=== PATIENT | female | born 1975 | race Caucasian/White ===

== ENCOUNTER 2016-05-03 20:35 | Emergency (ER) | payer OTHER ==
[~2016-05-03 20:35] MED LIST: /AUGM875TA; /PANT40TA; CLIN300C; DECADRON; MEDROL PACK; No Historical Meds; VICO5TAB; [UNRECOGNIZED DRUG - OTHER]
[2016-05-03] MEDS ORDERED: PENICILLIN V POTASSIUM 250 MG TAB As Ordered ONE (22:24)
[2016-05-03] MEDS ORDERED: PERCOCET 5MG/325MG TAB As Ordered ONE (22:24)
--- NOTE | 2016-05-03 22:36 | EDDOCDS ---
Physician Documentation [facility] Name: Eden Alvarado Age: 40 yrs Sex: Female : 1975 Arrival Date: 05/03/2016 Time: 20:35 Bed 12 Private MD: No Pcp Disposition: 05/03/16 22:10 Discharged to Home/Self Care. Impression: Dental caries - with tooth infection. - Condition is Stable. - Discharge Instructions: Dental Pain. - Prescriptions for Percocet 5- 325 mg Oral Tablet - take 1 tablet by ORAL route every 6 hours As needed MDD: 4 tabs; 20 tablet. penicillin V potassium 500 mg Oral Tablet - take 1 tablet by ORAL route 4 times per day for 10 days; 40 tablet. - Medication Reconciliation, Local Pharmacy Hours form. - Follow up: Private Physician; When: 2 - 3 days. - Problem is new. - Symptoms have improved. - Notes: follow up with dentist. return if worsening symptoms Historical: - Allergies: Tylenol-Codeine #3 (Hives); - Home Meds: 1. Albuterol Inhl - PMHx: Asthma; Heart Murmur; - PSHx: Tubal ligation; right knee surgery; Tonsillectomy; D & C; - Social history: Smoking status: Patient uses tobacco products, light tobacco smoker. No barriers to communication noted, The patient speaks fluent Turkmen, Speaks appropriately for age. - Family history: Not pertinent. - : The pt / caregiver states he / she is not on anticoagulants. Home medication list is obtained from the patient. - Exposure Risk Screening:: None identified. 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 4 in. (162.56 cm) (R); Pain 6/10; 22:14 BP 147 / 60; Pulse 71; Resp 18 S; Temp 97.6(O); Pulse Ox 95% on R/A; Pain 10/10; jp4 20:37 Body Mass Index 26.61 (70.31 kg, 162.56 cm) gr2 MDM: 22:22 oxyCODONE-acetaminophen 5 mg-325 mg 1 tabs PO once ordered. ml 22:22 Penicillin VK 500 mg PO once ordered. ml Administered Medications: 22:31 Drug: oxyCODONE-acetaminophen 1 tabs [oxycodone-acetaminophen 5 mg-325 mg tablet (1 mgs tabs)] Route: PO; 22:31 Drug: Penicillin VK 500 mg [penicillin V potassium 250 mg tablet (2 tabs)] Route: PO; mgs Signatures: Addie Vergara MD MD ml Tom Saleh, LEENA RN cz Tk Gomez RN RN mgs MTDD
--- NOTE | 2016-05-03 22:36 | EDDOCDS ---
Nurse's Notes [facility] Name: Eden Alvarado Age: 40 yrs Sex: Female : 1975 Arrival Date: 05/03/2016 Time: 20:35 Bed 12 Private MD: No Pcp Diagnosis: Dental caries-with tooth infection Presentation: 05/03 20:42 Presenting complaint: Patient states: left upper dental abscess for a couple of days. cz Adult Sepsis Screening: The patient does not have new or worsening altered mentation. Patient's respiratory rate is less than 22. Systolic blood pressure is greater than 100. Patient has a qSOFA score of 0- Negative Sepsis Screen. Suicide/Homicide risk assessment- the patient denies having any suicidal and/or homicidal ideations and does not present with any other emotional, behavioral or mental health complaints. 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 Transition of care: patient was not received from another setting of care. 20:42 Acuity: NERY Level 5 cz 20:42 Method Of Arrival: Walkin/Carried/Asstd cz Triage Assessment: 20:45 General: Appears in no apparent distress. Pain: Location: left cheek and left jaw Pain cz currently is 8 out of 10 on a pain scale. HIV screening NA for this visit Offered previously. 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 Albuterol Inhl - PMHx: Asthma; Heart Murmur; - PSHx: Tubal ligation; right knee surgery; Tonsillectomy; D & C; - Social history: Smoking status: Patient uses tobacco products, light tobacco smoker. No barriers to communication noted, The patient speaks fluent Gibraltarian, Speaks appropriately for age. - Family history: Not pertinent. - : The pt / caregiver states he / she is not on anticoagulants. Home medication list is obtained from the patient. - Exposure Risk Screening:: None identified. Screenin:07 Screening information is obtained from the patient. Fall risk: No risks identified. mgs Assistance ADL's: requires no assistance with activities of daily living. Abuse/DV Screen: The patient / caregiver reports he/she is: not in a situation that causes fear, pain or injury. Nutritional screening: No deficits noted. Advance Directives: Currently, there is no health care proxy. There is no active DNR order. home support is adequate. Assessment: 22:06 Adult Sepsis Screening: The patient does not have new or worsening altered mentation. mgs Patient's respiratory rate is less than 22. Systolic blood pressure is greater than 100. General: Appears in no apparent distress, Behavior is appropriate for age, cooperative. Pain: Location: left jaw Pain currently is 10 out of 10 on a pain scale. Quality of pain is described as throbbing. Neurological: Level of Consciousness is awake, alert, Oriented to person, place, time. Cardiovascular: Capillary refill < 3 seconds. Respiratory: Airway is patent Respiratory effort is even, unlabored, Respiratory pattern is regular, symmetrical. Derm: Skin is pink, warm & dry. 22:32 General: Appears in no apparent distress, Behavior is appropriate for age, cooperative. mgs Pain: Location: left jaw Pain currently is 10 out of 10 on a pain scale. Quality of pain is described as throbbing. Neurological: Level of Consciousness is awake, alert, Oriented to person, place, time. Cardiovascular: Capillary refill < 3 seconds. Respiratory: Airway is patent Respiratory effort is even, unlabored, Respiratory pattern is regular, symmetrical. Derm: Skin is pink, warm & dry. Vital Signs: 20:37 BP 128 / 78; Pulse 80; Resp 18 S; Temp 97.2(O); Pulse Ox 98% on R/A; Weight 70.31 kg gr2 (R); Height 5 ft. 4 in. (162.56 cm) (R); Pain 6/10; 22:14 BP 147 / 60; Pulse 71; Resp 18 S; Temp 97.6(O); Pulse Ox 95% on R/A; Pain 10/10; jp4 20:37 Body Mass Index 26.61 (70.31 kg, 162.56 cm) gr2 Vitals: 20:37 Log In Time: May 03, 2016 at 20:37. gr2 ED Course: 20:36 Patient visited by So José. gr2 20:36 Patient moved to Waiting gr2 20:37 No Pcp is Private Physician. gr2 20:38 Patient visited by So José. gr2 20:38 Patient moved to Pre RCE gr2 20:44 Triage Initiated cz 21:52 Paulina Small,RN is Primary Nurse. ar3 21:52 Patient moved to 12 ar3 21:56 Addie Vergara MD is Attending Physician. ml 21:56 Patient visited by Addie Vergara MD. ml 22:08 Patient visited by Tk Gomez,LEENA. mgs 22:15 Patient visited by Augustus Rob. jp4 22:33 The patient / caregiver is instructed regarding the plan of care and ED course. mgs 22:33 No IV's were initiated during this patient's visit. No procedures done that require mgs assistance. Administered Medications: 22:31 Drug: oxyCODONE-acetaminophen 1 tabs [oxycodone-acetaminophen 5 mg-325 mg tablet (1 mgs tabs)] Route: PO; 22:31 Drug: Penicillin VK 500 mg [penicillin V potassium 250 mg tablet (2 tabs)] Route: PO; mgs Order Results: There are currently no results for this order. Outcome: 22:10 Discharge ordered by Provider. 22:33 Discharge Assessment: Patient awake, alert and oriented x 3. No cognitive and/or mgs functional deficits noted. Patient verbalized understanding of disposition instructions. patient administered narcotics - yes. Pt provided with safe discharge. The following High Risk Discharge criteria are identified: None. Discharged to home ambulatory, with friend. Condition: stable. No special radiology studies were completed. Property sent home with patient. 22:34 Discharge instructions given to patient, Instructed on discharge instructions, follow mgs up and referral plans. medication usage, Demonstrated understanding of instructions, medications, Pt was receptive of discharge instructions/ teaching. Prescriptions given X 2. 22:34 Patient left the ED. mgs Signatures: Addie Vergara MD MD ml Zecher, Calvin, LEENA RN cz Barbara Brown, DIRECTORY CLERK DIRECTORY CLERK ar3 So José gr2 Augustus Rob jp4 Tk Gomez,LEENA RN mgs MTDD
--- NOTE | 2016-05-05 23:35 | EDDOCDS ---
Physician Documentation [facility] Name: Eden Alvarado Age: 40 yrs Sex: Female : 1975 Arrival Date: 05/03/2016 Time: 20:35 Bed 12 Private MD: No Pcp Disposition: 05/03/16 22:10 Discharged to Home/Self Care. Impression: Dental caries - with tooth infection. - Condition is Stable. - Discharge Instructions: Dental Pain. - Prescriptions for Percocet 5- 325 mg Oral Tablet - take 1 tablet by ORAL route every 6 hours As needed MDD: 4 tabs; 20 tablet. penicillin V potassium 500 mg Oral Tablet - take 1 tablet by ORAL route 4 times per day for 10 days; 40 tablet. - Medication Reconciliation, Local Pharmacy Hours form. - Follow up: Private Physician; When: 2 - 3 days. - Problem is new. - Symptoms have improved. - Notes: follow up with dentist. return if worsening symptoms Historical: - Allergies: Tylenol-Codeine #3 (Hives); - Home Meds: 1. Albuterol Inhl - PMHx: Asthma; Heart Murmur; - PSHx: Tubal ligation; right knee surgery; Tonsillectomy; D & C; - Social history: Smoking status: Patient uses tobacco products, light tobacco smoker. No barriers to communication noted, The patient speaks fluent Slovak, Speaks appropriately for age. - Family history: Not pertinent. - : The pt / caregiver states he / she is not on anticoagulants. Home medication list is obtained from the patient. - Exposure Risk Screening:: None identified. 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 4 in. (162.56 cm) (R); Pain 6/10; 22:14 BP 147 / 60; Pulse 71; Resp 18 S; Temp 97.6(O); Pulse Ox 95% on R/A; Pain 10/10; jp4 20:37 Body Mass Index 26.61 (70.31 kg, 162.56 cm) gr2 MDM: 22:22 oxyCODONE-acetaminophen 5 mg-325 mg 1 tabs PO once ordered. ml 22:22 Penicillin VK 500 mg PO once ordered. ml 23:22 [facility] Payment Agreement was scanned into [employer] and attached to record. gjb :23 Financial registration complete. gjb 05/04 10:18 T-Sheet-- Draft Copy was scanned into [employer] and attached to record. gb Administered Medications: 05/03 22:31 Drug: oxyCODONE-acetaminophen 1 tabs [oxycodone-acetaminophen 5 mg-325 mg tablet (1 mgs tabs)] Route: PO; 22:31 Drug: Penicillin VK 500 mg [penicillin V potassium 250 mg tablet (2 tabs)] Route: PO; mgs Signatures: Addie Vergara MD MD ml Zecher, Calvin, RN RN Andreina Stapleton, Tk Lorenzo RN RN mgs Beck, Gabriela gjb The chart was reviewed and I authenticate all verbal orders and agree with the evaluation and treatment provided.Attachments: 23:22 [facility] Payment Agreement [facility] 05/04 10:18 T-Sheet-- Draft Copy gb Chart Complete MTDD
--- NOTE | 2016-05-05 23:35 | EDDOCDS ---
Physician Documentation [facility] Name: Eden Alvarado Age: 40 yrs Sex: Female : 1975 Arrival Date: 05/03/2016 Time: 20:35 Bed 12 Private MD: No Pcp Disposition: 05/03/16 22:10 Discharged to Home/Self Care. Impression: Dental caries - with tooth infection. - Condition is Stable. - Discharge Instructions: Dental Pain. - Prescriptions for Percocet 5- 325 mg Oral Tablet - take 1 tablet by ORAL route every 6 hours As needed MDD: 4 tabs; 20 tablet. penicillin V potassium 500 mg Oral Tablet - take 1 tablet by ORAL route 4 times per day for 10 days; 40 tablet. - Medication Reconciliation, Local Pharmacy Hours form. - Follow up: Private Physician; When: 2 - 3 days. - Problem is new. - Symptoms have improved. - Notes: follow up with dentist. return if worsening symptoms Historical: - Allergies: Tylenol-Codeine #3 (Hives); - Home Meds: 1. Albuterol Inhl - PMHx: Asthma; Heart Murmur; - PSHx: Tubal ligation; right knee surgery; Tonsillectomy; D & C; - Social history: Smoking status: Patient uses tobacco products, light tobacco smoker. No barriers to communication noted, The patient speaks fluent Persian, Speaks appropriately for age. - Family history: Not pertinent. - : The pt / caregiver states he / she is not on anticoagulants. Home medication list is obtained from the patient. - Exposure Risk Screening:: None identified. 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 4 in. (162.56 cm) (R); Pain 6/10; 22:14 BP 147 / 60; Pulse 71; Resp 18 S; Temp 97.6(O); Pulse Ox 95% on R/A; Pain 10/10; jp4 20:37 Body Mass Index 26.61 (70.31 kg, 162.56 cm) gr2 MDM: 22:22 oxyCODONE-acetaminophen 5 mg-325 mg 1 tabs PO once ordered. ml 22:22 Penicillin VK 500 mg PO once ordered. ml 23:22 [facility] Payment Agreement was scanned into [employer] and attached to record. gjb :23 Financial registration complete. gjb 05/04 10:18 T-Sheet-- Draft Copy was scanned into [employer] and attached to record. gb Administered Medications: 05/03 22:31 Drug: oxyCODONE-acetaminophen 1 tabs [oxycodone-acetaminophen 5 mg-325 mg tablet (1 mgs tabs)] Route: PO; 22:31 Drug: Penicillin VK 500 mg [penicillin V potassium 250 mg tablet (2 tabs)] Route: PO; mgs Signatures: Addie Vergara MD MD ml Zecher, Calvin, RN RN Andreina Stapleton, Tk Lorenzo RN RN mgs Beck, Gabriela gjb The chart was reviewed and I authenticate all verbal orders and agree with the evaluation and treatment provided.Attachments: 23:22 [facility] Payment Agreement [facility] 05/04 10:18 T-Sheet-- Draft Copy gb Chart Complete MTDD
--- NOTE | 2016-05-05 23:35 | EDDOCDS ---
Nurse's Notes [facility] Name: Eden Alvarado Age: 40 yrs Sex: Female : 1975 Arrival Date: 05/03/2016 Time: 20:35 Bed 12 Private MD: No Pcp Diagnosis: Dental caries-with tooth infection Presentation: 05/03 20:42 Presenting complaint: Patient states: left upper dental abscess for a couple of days. cz Adult Sepsis Screening: The patient does not have new or worsening altered mentation. Patient's respiratory rate is less than 22. Systolic blood pressure is greater than 100. Patient has a qSOFA score of 0- Negative Sepsis Screen. Suicide/Homicide risk assessment- the patient denies having any suicidal and/or homicidal ideations and does not present with any other emotional, behavioral or mental health complaints. 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 Transition of care: patient was not received from another setting of care. 20:42 Acuity: NERY Level 5 cz 20:42 Method Of Arrival: Walkin/Carried/Asstd cz Triage Assessment: 20:45 General: Appears in no apparent distress. Pain: Location: left cheek and left jaw Pain cz currently is 8 out of 10 on a pain scale. HIV screening NA for this visit Offered previously. 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 Albuterol Inhl - PMHx: Asthma; Heart Murmur; - PSHx: Tubal ligation; right knee surgery; Tonsillectomy; D & C; - Social history: Smoking status: Patient uses tobacco products, light tobacco smoker. No barriers to communication noted, The patient speaks fluent Serbian, Speaks appropriately for age. - Family history: Not pertinent. - : The pt / caregiver states he / she is not on anticoagulants. Home medication list is obtained from the patient. - Exposure Risk Screening:: None identified. Screenin:07 Screening information is obtained from the patient. Fall risk: No risks identified. mgs Assistance ADL's: requires no assistance with activities of daily living. Abuse/DV Screen: The patient / caregiver reports he/she is: not in a situation that causes fear, pain or injury. Nutritional screening: No deficits noted. Advance Directives: Currently, there is no health care proxy. There is no active DNR order. home support is adequate. Assessment: 22:06 Adult Sepsis Screening: The patient does not have new or worsening altered mentation. mgs Patient's respiratory rate is less than 22. Systolic blood pressure is greater than 100. General: Appears in no apparent distress, Behavior is appropriate for age, cooperative. Pain: Location: left jaw Pain currently is 10 out of 10 on a pain scale. Quality of pain is described as throbbing. Neurological: Level of Consciousness is awake, alert, Oriented to person, place, time. Cardiovascular: Capillary refill < 3 seconds. Respiratory: Airway is patent Respiratory effort is even, unlabored, Respiratory pattern is regular, symmetrical. Derm: Skin is pink, warm & dry. 22:32 General: Appears in no apparent distress, Behavior is appropriate for age, cooperative. mgs Pain: Location: left jaw Pain currently is 10 out of 10 on a pain scale. Quality of pain is described as throbbing. Neurological: Level of Consciousness is awake, alert, Oriented to person, place, time. Cardiovascular: Capillary refill < 3 seconds. Respiratory: Airway is patent Respiratory effort is even, unlabored, Respiratory pattern is regular, symmetrical. Derm: Skin is pink, warm & dry. Vital Signs: 20:37 BP 128 / 78; Pulse 80; Resp 18 S; Temp 97.2(O); Pulse Ox 98% on R/A; Weight 70.31 kg gr2 (R); Height 5 ft. 4 in. (162.56 cm) (R); Pain 6/10; 22:14 BP 147 / 60; Pulse 71; Resp 18 S; Temp 97.6(O); Pulse Ox 95% on R/A; Pain 10/10; jp4 20:37 Body Mass Index 26.61 (70.31 kg, 162.56 cm) gr2 Vitals: 20:37 Log In Time: May 03, 2016 at 20:37. gr2 ED Course: 20:36 Patient visited by So José. gr2 20:36 Patient moved to Waiting gr2 20:37 No Pcp is Private Physician. gr2 20:38 Patient visited by So José. gr2 20:38 Patient moved to Pre RCE gr2 20:44 Triage Initiated cz 21:52 Paulina Small,RN is Primary Nurse. ar3 21:52 Patient moved to 12 ar3 21:56 Addie Vergara MD is Attending Physician. ml 21:56 Patient visited by Addie Vergara MD. ml 22:08 Patient visited by Tk Gomez,LEENA. mgs 22:15 Patient visited by Augustus Rob. jp4 22:33 The patient / caregiver is instructed regarding the plan of care and ED course. mgs 22:33 No IV's were initiated during this patient's visit. No procedures done that require mgs assistance. 23:22 [facility] Payment Agreement was scanned into [employer] and attached to record. gjb 05/04 10:18 T-Sheet-- Draft Copy was scanned into [employer] and attached to record. gb Administered Medications: 05/03 22:31 Drug: oxyCODONE-acetaminophen 1 tabs [oxycodone-acetaminophen 5 mg-325 mg tablet (1 mgs tabs)] Route: PO; 22:31 Drug: Penicillin VK 500 mg [penicillin V potassium 250 mg tablet (2 tabs)] Route: PO; mgs Order Results: There are currently no results for this order. Outcome: 22:10 Discharge ordered by Provider. ml 22:33 Discharge Assessment: Patient awake, alert and oriented x 3. No cognitive and/or mgs functional deficits noted. Patient verbalized understanding of disposition instructions. patient administered narcotics - yes. Pt provided with safe discharge. The following High Risk Discharge criteria are identified: None. Discharged to home ambulatory, with friend. Condition: stable. No special radiology studies were completed. Property sent home with patient. 22:34 Discharge instructions given to patient, Instructed on discharge instructions, follow mgs up and referral plans. medication usage, Demonstrated understanding of instructions, medications, Pt was receptive of discharge instructions/ teaching. Prescriptions given X 2. 22:34 Patient left the ED. mgs Signatures: Addie Vergara MD MD ml Zecher, Calvin, LEENA RN cz Andreina Douglass, Reg Reg gb Kurtis Browna, PIN DRAFTING MACHINE TENDER PIN DRAFTING MACHINE TENDER ar3 So José gr2 Augustus Rob jp4 Tk Gomez,LEENA STERN s [facility] Chart Complete MTDD
== END 2016-05-03 22:34 | disposition home or self-care (01) ==
LOC: M ED 20:35
DX: K08.9 Disorder of teeth and supporting structures, unspecified (principal); J45.909 Unspecified asthma, uncomplicated; R01.1 Cardiac murmur, unspecified; F17.210 Nicotine dependence, cigarettes, uncomplicated; Z79.51 Long term (current) use of inhaled steroids; Z88.6 Allergy status to analgesic agent

== ENCOUNTER 2016-05-29 14:09 | Emergency (ER) | payer OTHER ==
--- NOTE | 2016-05-29 15:38 | EDDOCDS ---
Physician Documentation [facility] Name: Eden Alvarado Age: 40 yrs Sex: Female : 1975 Arrival Date: 05/29/2016 Time: 14:09 Bed TR7 Private MD: No Pcp Disposition: 05/29/16 15:27 Discharged to Home/Self Care. Impression: Dental caries - Tooth Pain/Fracture/Abscess. - Condition is Stable. - Discharge Instructions: Dental Fracture, Abscessed Tooth, [id number], Dental Pain, [id number], Dental Pain. - Prescriptions for Clindamycin HCl 300 mg Oral Capsule - take 1 capsule by ORAL route every 6 hours; 40 capsule. Ibuprofen 800 mg Oral Tablet - take 1 tablet by ORAL route every 8 hours As needed take with food; 30 tablet. Percocet 5- 325 mg Oral Tablet - take 1 tablet by ORAL route every 6 hours As needed MDD: 4 tabs; 6 tablet. magic mouthwash Mucous Membrane Solution - apply 5 milliliters by ORAL route 4 times per day As needed Gargle, swish, spit; Maalox, Liquid Benadryl, and Viscous Lidocaine, 1 to 1 to 1 ratio; 237 milliliter. - Dental Referral List, Referral List Call for Appointment, Medication Reconciliation, Local Pharmacy Hours form. - Follow up: Dentist Your; When: 1 - 2 days; Reason: Further diagnostic work-up, Recheck today's complaints, Continuance of care. Follow up: Emergency Department; Reason: Worsening of conditions. - Problem is new. - Symptoms are unchanged. Historical: - Allergies: Tylenol-Codeine #3 (Hives); - Home Meds: 1. albuterol sulfate 90 mcg/actuation inhalation HFAA prn 2. ibuprofen 800 mg Oral tab prn (Last dose: 05/29/2016 13:15) - PMHx: Asthma; Heart Murmur; - PSHx: Tubal ligation; right knee surgery; Tonsillectomy; D & C; - Social history: Smoking status: Patient uses tobacco products, current every day smoker. No barriers to communication noted, The patient speaks fluent Citizen Of [place]. - : The pt / caregiver states he / she is not on anticoagulants. Home medication list is obtained from the patient. - Exposure Risk Screening:: None identified. 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 4 in. (162.56 cm) (R); 14:10 Body Mass Index 26.61 (70.31 kg, 162.56 cm) elp Signatures: Debbie Joés, LEENA RN Charleen Guzmán, PAPranavC PA-C ef1 MTDD
--- NOTE | 2016-05-29 15:38 | EDDOCDS ---
Nurse's Notes [facility] Name: Eden Alvarado Age: 40 yrs Sex: Female : 1975 Arrival Date: 05/29/2016 Time: 14:09 Bed TR7 Private MD: No Pcp Diagnosis: Dental caries-Tooth Pain/Fracture/Abscess Presentation: 05/29 14:13 Presenting complaint: Patient states: left jaw pain for past 2 days now radiating to jjr left ear. Adult Sepsis Screening: The patient does not have new or worsening altered mentation. Patient's respiratory rate is less than 22. Systolic blood pressure is greater than 100. Patient has a qSOFA score of 0- Negative Sepsis Screen. Suicide/Homicide risk assessment- the patient denies having any suicidal and/or homicidal ideations and does not present with any other emotional, behavioral or mental health complaints. Status: Patient is not a service porter or dependent. Transition of care: patient was not received from another setting of care. 14:13 Acuity: NERY Level 4 jjr 14:13 Method Of Arrival: Walkin/Carried/Asstd jjr Triage Assessment: 14:15 General: Appears in no apparent distress, uncomfortable, Behavior is appropriate for jr age. Pain: Location: left jaw. HIV screening NA for this visit Offered previously. OPENER: 14:15 LMP 05/22/2016 jjr Historical: - Allergies: Tylenol-Codeine #3 (Hives); - Home Meds: 1. albuterol sulfate 90 mcg/actuation inhalation HFAA prn 2. ibuprofen 800 mg Oral tab prn (Last dose: 05/29/2016 13:15) - PMHx: Asthma; Heart Murmur; - PSHx: Tubal ligation; right knee surgery; Tonsillectomy; D & C; - Social history: Smoking status: Patient uses tobacco products, current every day smoker. No barriers to communication noted, The patient speaks fluent Kiswahili. - : The pt / caregiver states he / she is not on anticoagulants. Home medication list is obtained from the patient. - Exposure Risk Screening:: None identified. Screenin:11 Infection Control. el 15:36 Screening information is obtained from the patient. Fall risk: No risks identified. jjr Assistance ADL's: requires no assistance with activities of daily living. Abuse/DV Screen: The patient / caregiver reports he/she is: not in a situation that causes fear, pain or injury. Nutritional screening: No deficits noted. Advance Directives: There is no active DNR order. home support is adequate. Assessment: 15:35 General: Appears in no apparent distress, well nourished, well groomed, Behavior is jjr appropriate for age. EENT: Reports pain in left jaw. Respiratory: Airway is patent Respiratory effort is even, unlabored, Respiratory pattern is regular. Vital Signs: 14:10 BP 153 / 86; Pulse 81; Resp 16; Temp 96.9(O); Pulse Ox 97% on R/A; Weight 70.31 kg (R); elp Height 5 ft. 4 in. (162.56 cm) (R); 14:10 Body Mass Index 26.61 (70.31 kg, 162.56 cm) el Vitals: 14:10 Log In Time: May 29, 2016 at 14:08. [facility] ED Course: 14:09 Patient visited by Paradise Wilkerson PCA. elp 14:09 Patient moved to Waiting elp 14:10 No Pcp is Private Physician. elp 14:10 Patient moved to Pre RCE jjr 14:14 Triage Initiated jjr 15:09 Patient moved to Triage 2 ar3 15:10 [facility] Palumbo [facility] ef1 15:10 Daylin Cardoso MD is Attending Physician. ef1 15:12 Patient visited by Charleen Palumbo PA-C. ef1 15:27 Your, Dentist is Referral Physician. ef1 15:35 Patient moved to TR7 ar3 15:36 The patient / caregiver is instructed regarding the plan of care and ED course. jjr 15:36 No IV's were initiated during this patient's visit. No procedures done that require jjr assistance. Order Results: There are currently no results for this order. Outcome: 15:27 Discharge ordered by Provider. ef1 15:36 Discharge Assessment: patient administered narcotics - no. The following High Risk jjr Discharge criteria are identified: None. Discharged to home ambulatory, with family. Condition: stable. Discharge instructions given to patient, Instructed on discharge instructions, follow up and referral plans. medication usage, Demonstrated understanding of instructions, medications, Prescriptions given X 4. No special radiology studies were completed. Property sent home with patient. 15:37 Patient left the ED. [email or web address] Signatures: Debbie José, RN RN Charleen Guzmán PA-C PA-C ef1 Barbara Brown, MENTALLY RETARDED TEACHER MENTALLY RETARDED TEACHER ar3 Paradise Wilkerson, MENTALLY RETARDED TEACHER MENTALLY RETARDED TEACHER elp MTDD
--- NOTE | 2016-05-31 16:37 | EDDOCDS ---
Physician Documentation [facility] Name: Eden Alvarado Age: 40 yrs Sex: Female : 1975 Arrival Date: 05/29/2016 Time: 14:09 Bed TR7 Private MD: No Pcp Disposition: 05/29/16 15:27 Discharged to Home/Self Care. Impression: Dental caries - Tooth Pain/Fracture/Abscess. - Condition is Stable. - Discharge Instructions: Dental Fracture, Abscessed Tooth, [id number], Dental Pain, [id number], Dental Pain. - Prescriptions for Clindamycin HCl 300 mg Oral Capsule - take 1 capsule by ORAL route every 6 hours; 40 capsule. Ibuprofen 800 mg Oral Tablet - take 1 tablet by ORAL route every 8 hours As needed take with food; 30 tablet. Percocet 5- 325 mg Oral Tablet - take 1 tablet by ORAL route every 6 hours As needed MDD: 4 tabs; 6 tablet. magic mouthwash Mucous Membrane Solution - apply 5 milliliters by ORAL route 4 times per day As needed Gargle, swish, spit; Maalox, Liquid Benadryl, and Viscous Lidocaine, 1 to 1 to 1 ratio; 237 milliliter. - Dental Referral List, Referral List Call for Appointment, Medication Reconciliation, Local Pharmacy Hours form. - Follow up: Dentist Your; When: 1 - 2 days; Reason: Further diagnostic work-up, Recheck today's complaints, Continuance of care. Follow up: Emergency Department; Reason: Worsening of conditions. - Problem is new. - Symptoms are unchanged. Historical: - Allergies: Tylenol-Codeine #3 (Hives); - Home Meds: 1. albuterol sulfate 90 mcg/actuation inhalation HFAA prn 2. ibuprofen 800 mg Oral tab prn (Last dose: 05/29/2016 13:15) - PMHx: Asthma; Heart Murmur; - PSHx: Tubal ligation; right knee surgery; Tonsillectomy; D & C; - Social history: Smoking status: Patient uses tobacco products, current every day smoker. No barriers to communication noted, The patient speaks fluent Nigerian. - : The pt / caregiver states he / she is not on anticoagulants. Home medication list is obtained from the patient. - Exposure Risk Screening:: None identified. INDUSTRIAL ENG: 05/29 14:15 LMP 05/22/2016 cisco Vital Signs: 14:10 BP 153 / 86; Pulse 81; Resp 16; Temp 96.9(O); Pulse Ox 97% on R/A; Weight 70.31 kg / elp 155.01 lbs (R); Height 5 ft. 4 in. (162.56 cm) (R); 14:10 Body Mass Index 26.61 (70.31 kg, 162.56 cm) elp MDM: 20:03 T-Sheet-- Draft Copy was scanned into [employer] and attached to record. klr Signatures: Debbie José, RN RN Charleen Guzmán PA-C PA-C ef1 Coleen Ward The chart was reviewed and I authenticate all verbal orders and agree with the evaluation and treatment provided.Attachments: 20:03 T-Sheet-- Draft Copy klr Chart Complete MTDD
--- NOTE | 2016-05-31 16:37 | EDDOCDS ---
Physician Documentation [facility] Name: Eden Alvarado Age: 40 yrs Sex: Female : 1975 Arrival Date: 05/29/2016 Time: 14:09 Bed TR7 Private MD: No Pcp Disposition: 05/29/16 15:27 Discharged to Home/Self Care. Impression: Dental caries - Tooth Pain/Fracture/Abscess. - Condition is Stable. - Discharge Instructions: Dental Fracture, Abscessed Tooth, [id number], Dental Pain, [id number]-[id number], Dental Pain. - Prescriptions for Clindamycin HCl 300 mg Oral Capsule - take 1 capsule by ORAL route every 6 hours; 40 capsule. Ibuprofen 800 mg Oral Tablet - take 1 tablet by ORAL route every 8 hours As needed take with food; 30 tablet. Percocet 5- 325 mg Oral Tablet - take 1 tablet by ORAL route every 6 hours As needed MDD: 4 tabs; 6 tablet. magic mouthwash Mucous Membrane Solution - apply 5 milliliters by ORAL route 4 times per day As needed Gargle, swish, spit; Maalox, Liquid Benadryl, and Viscous Lidocaine, 1 to 1 to 1 ratio; 237 milliliter. - Dental Referral List, Referral List Call for Appointment, Medication Reconciliation, Local Pharmacy Hours form. - Follow up: Dentist Your; When: 1 - 2 days; Reason: Further diagnostic work-up, Recheck today's complaints, Continuance of care. Follow up: Emergency Department; Reason: Worsening of conditions. - Problem is new. - Symptoms are unchanged. Historical: - Allergies: Tylenol-Codeine #3 (Hives); - Home Meds: 1. albuterol sulfate 90 mcg/actuation inhalation HFAA prn 2. ibuprofen 800 mg Oral tab prn (Last dose: 05/29/2016 13:15) - PMHx: Asthma; Heart Murmur; - PSHx: Tubal ligation; right knee surgery; Tonsillectomy; D & C; - Social history: Smoking status: Patient uses tobacco products, current every day smoker. No barriers to communication noted, The patient speaks fluent Bolivian. - : The pt / caregiver states he / she is not on anticoagulants. Home medication list is obtained from the patient. - Exposure Risk Screening:: None identified. HEARING EXAMINER: 05/29 14:15 LMP 05/22/2016 cisco Vital Signs: 14:10 BP 153 / 86; Pulse 81; Resp 16; Temp 96.9(O); Pulse Ox 97% on R/A; Weight 70.31 kg / elp 155.01 lbs (R); Height 5 ft. 4 in. (162.56 cm) (R); 14:10 Body Mass Index 26.61 (70.31 kg, 162.56 cm) elp MDM: 20:03 T-Sheet-- Draft Copy was scanned into LEHR and attached to record. klr Signatures: Debbie José, RN RN Charleen Guzmán PA-C PA-C ef1 Coleen Ward The chart was reviewed and I authenticate all verbal orders and agree with the evaluation and treatment provided.Attachments: 20:03 T-Sheet-- Draft Copy klr Chart Complete MTDD
--- NOTE | 2016-05-31 16:37 | EDDOCDS ---
Nurse's Notes [facility] Name: Eden Alvarado Age: 40 yrs Sex: Female : 1975 Arrival Date: 05/29/2016 Time: 14:09 Bed TR7 Private MD: No Pcp Diagnosis: Dental caries-Tooth Pain/Fracture/Abscess Presentation: 05/29 14:13 Presenting complaint: Patient states: left jaw pain for past 2 days now radiating to jjr left ear. Adult Sepsis Screening: The patient does not have new or worsening altered mentation. Patient's respiratory rate is less than 22. Systolic blood pressure is greater than 100. Patient has a qSOFA score of 0- Negative Sepsis Screen. Suicide/Homicide risk assessment- the patient denies having any suicidal and/or homicidal ideations and does not present with any other emotional, behavioral or mental health complaints. Status: Patient is not a service greeter or dependent. Transition of care: patient was not received from another setting of care. 14:13 Acuity: NERY Level 4 jjr 14:13 Method Of Arrival: Walkin/Carried/Asstd jjr Triage Assessment: 14:15 General: Appears in no apparent distress, uncomfortable, Behavior is appropriate for jr age. Pain: Location: left jaw. HIV screening NA for this visit Offered previously. CRUSHER [employer] GR[employer] MICA: 14:15 LMP 05/22/2016 jjr Historical: - Allergies: Tylenol-Codeine #3 (Hives); - Home Meds: 1. albuterol sulfate 90 mcg/actuation inhalation HFAA prn 2. ibuprofen 800 mg Oral tab prn (Last dose: 05/29/2016 13:15) - PMHx: Asthma; Heart Murmur; - PSHx: Tubal ligation; right knee surgery; Tonsillectomy; D & C; - Social history: Smoking status: Patient uses tobacco products, current every day smoker. No barriers to communication noted, The patient speaks fluent Romansh. - : The pt / caregiver states he / she is not on anticoagulants. Home medication list is obtained from the patient. - Exposure Risk Screening:: None identified. Screenin:11 Infection Control. el 15:36 Screening information is obtained from the patient. Fall risk: No risks identified. jjr Assistance ADL's: requires no assistance with activities of daily living. Abuse/DV Screen: The patient / caregiver reports he/she is: not in a situation that causes fear, pain or injury. Nutritional screening: No deficits noted. Advance Directives: There is no active DNR order. home support is adequate. Assessment: 15:35 General: Appears in no apparent distress, well nourished, well groomed, Behavior is jjr appropriate for age. EENT: Reports pain in left jaw. Respiratory: Airway is patent Respiratory effort is even, unlabored, Respiratory pattern is regular. Vital Signs: 14:10 BP 153 / 86; Pulse 81; Resp 16; Temp 96.9(O); Pulse Ox 97% on R/A; Weight 70.31 kg (R); elp Height 5 ft. 4 in. (162.56 cm) (R); 14:10 Body Mass Index 26.61 (70.31 kg, 162.56 cm) el Vitals: 14:10 Log In Time: May 29, 2016 at 14:08. [facility] ED Course: 14:09 Patient visited by Paradise Wilkerson PCA. elp 14:09 Patient moved to Waiting elp 14:10 No Pcp is Private Physician. elp 14:10 Patient moved to Pre RCE jjr 14:14 Triage Initiated jjr 15:09 Patient moved to Triage 2 ar3 15:10 Char[facility] Palumbo [facility]-C [facility]. ef1 15:10 Daylin Cardoso MD is Attending Physician. ef1 15:12 Patient visited by Charleen Palumbo PA-C. ef1 15:27 Your, Dentist is Referral Physician. ef1 15:35 Patient moved to TR7 ar3 15:36 The patient / caregiver is instructed regarding the plan of care and ED course. jjr 15:36 No IV's were initiated during this patient's visit. No procedures done that require jjr assistance. 20:03 T-Sheet-- Draft Copy was scanned into Stemnion and attached to record. klr Order Results: There are currently no results for this order. Outcome: 15:27 Discharge ordered by Provider. ef1 15:36 Discharge Assessment: patient administered narcotics - no. The following High Risk jjr Discharge criteria are identified: None. Discharged to home ambulatory, with family. Condition: stable. Discharge instructions given to patient, Instructed on discharge instructions, follow up and referral plans. medication usage, Demonstrated understanding of instructions, medications, Prescriptions given X 4. No special radiology studies were completed. Property sent home with patient. 15:37 Patient left the ED. cisco Signatures: Debbie José, RN RN Charleen Guzmán, KAYLEY PASherie ef1 Barbara Brown, SEWER MAINTENANCE SUPERVISOR SEWER MAINTENANCE SUPERVISOR ar3 Paradise Wilkerson, SEWER MAINTENANCE SUPERVISOR SEWER MAINTENANCE SUPERVISOR elp Coleen Ward Chart Complete MTDD
== END 2016-05-29 15:37 | disposition home or self-care (01) ==
LOC: M ED 14:09
DX: K04.7 Periapical abscess without sinus (principal); K02.9 Dental caries, unspecified; H92.02 Otalgia, left ear; S02.5XXA Fracture of tooth (traumatic), initial encounter for closed fracture; X58.XXXA Exposure to other specified factors, initial encounter; Y92.89 Other specified places as the place of occurrence of the external cause; Y93.89 Activity, other specified; Y99.8 Other external cause status; J45.909 Unspecified asthma, uncomplicated; Z88.5 Allergy status to narcotic agent; F17.210 Nicotine dependence, cigarettes, uncomplicated

== ENCOUNTER 2016-06-16 16:48 | Emergency (ER) | payer OTHER | END 2016-06-16 18:48 | disposition left against medical advice (07) | LOC: M ED 16:48 | DX: K08.9 Disorder of teeth and supporting structures, unspecified (principal); J45.909 Unspecified asthma, uncomplicated; R01.1 Cardiac murmur, unspecified; F17.210 Nicotine dependence, cigarettes, uncomplicated; Z79.899 Other long term (current) drug therapy; Z88.5 Allergy status to narcotic agent; Z53.21 Procedure and treatment not carried out due to patient leaving prior to being seen by health care provider ==

== ENCOUNTER 2016-10-12 12:58 | Emergency (ER) | payer MEDICAID, OTHER ==
[~2016-10-12] VITALS: Ht 162.6 cm; Wt 90.0 kg
[2016-10-12] MEDS ORDERED: ALBU17IN2 INH (13:13)
[2016-10-12] MEDS ORDERED: IBUP80TA PO (14:03)
[2016-10-12] MEDS ORDERED: AMOX500C PO (14:03)
[2016-10-12 14:23] VITALS: BP 138/86
== END 2016-10-12 14:25 | disposition home or self-care (01) ==
LOC: M ED 14:06
DX: K04.7 Periapical abscess without sinus (principal); J45.909 Unspecified asthma, uncomplicated; Z87.891 Personal history of nicotine dependence; Z91.010 Allergy to peanuts

== ENCOUNTER 2017-05-19 18:20 | Emergency (ER) | payer OTHER, MEDICAID ==
[2017-05-19] MEDS ORDERED: METOCLOPRAMIDE INJ 10MG/2ML VIAL (J2765) IV (19:45)
[2017-05-19] MEDS ORDERED: diphenhydrAMINE INJ 50MG/ML VIAL (J1200) IV (19:45)
[2017-05-19] MEDS: KETOROLAC 60 MG/2 ML VIAL (J1885) IM (20:39)
[2017-05-19] MEDS: diphenhydrAMINE 25 MG CAP PO (21:39)
[2017-05-19] MEDS: ONDANSETRON 4 MG ORAL DISINTEGRATING TAB (S0181) PO (21:39)
== END 2017-05-19 22:56 | disposition home or self-care (01) ==
LOC: M ED 18:20
DX: G43.009 Migraine without aura, not intractable, without status migrainosus (principal); J45.909 Unspecified asthma, uncomplicated; F17.210 Nicotine dependence, cigarettes, uncomplicated; Z91.010 Allergy to peanuts; Z87.820 Personal history of traumatic brain injury; Z98.890 Other specified postprocedural states; Z82.49 Family history of ischemic heart disease and other diseases of the circulatory system; Z82.3 Family history of stroke
CPT/HCPCS: J1885

== ENCOUNTER 2017-12-09 08:01 | Inpatient (IN) | payer SELFPAY ==
[2017-12-09] MEDS: KETOROLAC 30 MG/ML VIAL (J1885) IV ×3 (08:25→21:49)
[2017-12-09] MEDS: CLINDAMYCIN 900 MG in APPROPRIATE DILUENT 1 EA IV ×3 (08:25→19:57)
[2017-12-09] MEDS: NICOTINE 14 MG/24 HR TRANSDERMAL TD (09:00)
[2017-12-09] MEDS ORDERED: GLUCOSE 4 GM CHEW TABLET PO (09:45)
[2017-12-09] MEDS ORDERED: DEXTROSE 50% 50 ML SYRINGE IV (09:45)
[2017-12-09] MEDS ORDERED: ONDANSETRON 4MG/2ML VIAL (J2405) IV ×2 (09:45→15:30)
[2017-12-09] MEDS ORDERED: GLUCAGON FOR INJ 1 MG VIAL (J1610) SC (09:45)
[2017-12-09 09:55] LABS: HEMATOCRIT 34.6 % (36.0-47.0); HEMOGLOBIN 11.8 g/dl (12.0-15.5); MEAN CORPUSCULAR HEMOGLOBIN 28.4 pg (27.0-33.0); MEAN CORPUSCULAR HGB CONC 34.1 g/dl (32.0-36.5); MEAN CORPUSCULAR VOLUME 83.4 fl (80.0-96.0); PLATELET COUNT, AUTOMATED 175 10^3/uL (150-450); RED BLOOD COUNT 4.15 10^6/uL (4.00-5.40); RED CELL DISTRIBUTION WIDTH 13.2 % (11.5-14.5); WHITE BLOOD COUNT 7.8 10^3/uL (4.0-10.0)
[2017-12-09] MEDS: NS 1,000 ML IV ×2 (10:05→16:25)
[2017-12-09] MEDS ORDERED: MIDAZOLAM INJ 2 MG/2 ML VIAL (J2250) As Ordered (13:50)
[2017-12-09] MEDS ORDERED: PROPOFOL 200 MG/20 ML VIAL As Ordered (13:50)
[2017-12-09] MEDS ORDERED: fentaNYL 100 MCG/2 ML INJECTION (J3010) As Ordered ×2 (13:50→15:17)
[2017-12-09] MEDS ORDERED: ROCURONIUM BROMIDE 50 MG/5 ML VIAL As Ordered (13:50)
[2017-12-09] MEDS ORDERED: LIDOCAINE 2% INJ 100 MG/5 ML SDV (FOR ANES.) As Ordered (13:50)
[2017-12-09] MEDS: LIDOCAINE 2% W/ EPINEPHRINE 1.7 ML DENTAL INJ As Ordered (14:45)
[2017-12-09] MEDS ORDERED: ONDANSETRON 4MG/2ML VIAL (J2405) As Ordered ×2 (14:50→15:17)
[2017-12-09] MEDS ORDERED: dexameTHASONE 4 MG/ML 1ML VIAL (J1100) As Ordered (14:50)
[2017-12-09] MEDS ORDERED: PERCOCET 5MG/325MG TAB As Ordered ×2 (15:17→16:08)
[2017-12-09] MEDS: fentaNYL 100 MCG/2 ML INJECTION (J3010) IV ×4 (15:25→16:10)
[2017-12-09] MEDS ORDERED: MORPHINE 10 MG/ML 1ML VIAL (J2270) IV (15:30)
[2017-12-09] MEDS ORDERED: KETOROLAC 30 MG/ML VIAL (J1885) As Ordered (15:33)
[2017-12-09] MEDS: PERCOCET 5MG/325MG TAB PO ×2 (15:41→16:10)
[2017-12-09 17:44] LABS: BASO % 0.4 % (0.0-1.0); EOS % 0.2 % (0.0-3.0); HEMATOCRIT 35.3 % (36.0-47.0); IMMATURE GRANULOCYTE % 0.4 % (0-3.0); LYMPH # 1.3 10^3/uL (1.5-4.5); LYMPH % 15.3 % (24.0-44.0); MEAN CORPUSCULAR HEMOGLOBIN 28.6 pg (27.0-33.0); MEAN CORPUSCULAR VOLUME 84.2 fl (80.0-96.0); MONO # 0.4 10^3/uL (0.0-0.8); MONO % 4.7 % (0.0-5.0); NEUTROPHILS # 6.7 10^3/uL (1.8-7.7); PLATELET COUNT, AUTOMATED 192 10^3/uL (150-450); RED BLOOD COUNT 4.19 10^6/uL (4.00-5.40); RED CELL DISTRIBUTION WIDTH 13.3 % (11.5-14.5); WHITE BLOOD COUNT 8.5 10^3/uL (4.0-10.0)
[2017-12-09 18:06] LABS: ANION GAP 7 MEQ/L (8-16); BLOOD UREA NITROGEN 7 MG/DL (7-18); CALCIUM LEVEL 7.7 MG/DL (8.5-10.1); CARBON DIOXIDE LEVEL 24 MEQ/L (21-32); CHLORIDE LEVEL 110 MEQ/L (98-107); GLOMERULAR FILTRATION RATE > 60.0 (>58); GLUCOSE, FASTING 153 MG/DL (70-100); POTASSIUM SERUM 3.6 MEQ/L (3.5-5.1); SODIUM LEVEL 141 MEQ/L (136-145)
[2017-12-09 18:30] LABS: ERYTHROCYTE SEDIMENTATION RATE 48 mm/hr (0-20)
[2017-12-09] MEDS: LR 1,000 ML IV (18:40)
[2017-12-09] MEDS: LACTOBACILLUS ACIDOPHILUS CAP (BACID) PO (18:44)
[2017-12-10] MEDS: NS 1,000 ML IV (01:49)
[2017-12-10] MEDS: CLINDAMYCIN 900 MG in APPROPRIATE DILUENT 1 EA IV ×2 (02:41→07:48)
[2017-12-10] MEDS: KETOROLAC 30 MG/ML VIAL (J1885) IV (04:37)
[2017-12-10 06:46] LABS: BASO % 0.1 % (0.0-1.0); HEMATOCRIT 33.2 % (36.0-47.0); HEMOGLOBIN 11.1 g/dl (12.0-15.5); IMMATURE GRANULOCYTE % 0.5 % (0-3.0); LYMPH # 1.7 10^3/uL (1.5-4.5); MEAN CORPUSCULAR HEMOGLOBIN 28.4 pg (27.0-33.0); MEAN CORPUSCULAR HGB CONC 33.4 g/dl (32.0-36.5); MEAN CORPUSCULAR VOLUME 84.9 fl (80.0-96.0); MONO # 0.6 10^3/uL (0.0-0.8); MONO % 7.4 % (0.0-5.0); NEUTROPHILS # 5.8 10^3/uL (1.8-7.7); PLATELET COUNT, AUTOMATED 191 10^3/uL (150-450); RED BLOOD COUNT 3.91 10^6/uL (4.00-5.40); RED CELL DISTRIBUTION WIDTH 13.2 % (11.5-14.5); WHITE BLOOD COUNT 8.2 10^3/uL (4.0-10.0)
[2017-12-10 07:11] LABS: ANION GAP 6 MEQ/L (8-16); BLOOD UREA NITROGEN 7 MG/DL (7-18); CALCIUM LEVEL 7.9 MG/DL (8.5-10.1); CARBON DIOXIDE LEVEL 27 MEQ/L (21-32); CHLORIDE LEVEL 109 MEQ/L (98-107); CREATININE FOR GFR 0.62 MG/DL (0.55-1.30); GLOMERULAR FILTRATION RATE > 60.0 (>58); GLUCOSE, FASTING 128 MG/DL (70-100); POTASSIUM SERUM 4.1 MEQ/L (3.5-5.1); SODIUM LEVEL 142 MEQ/L (136-145)
[2017-12-10 07:26] LABS: ERYTHROCYTE SEDIMENTATION RATE 49 mm/hr (0-20)
[2017-12-10] MEDS: LACTOBACILLUS ACIDOPHILUS CAP (BACID) PO (07:47)
[2017-12-10] MEDS: NICOTINE 14 MG/24 HR TRANSDERMAL TD (07:48)
== END 2017-12-10 10:15 | disposition home or self-care (01) | DRG 364 ==
LOC: M ED 08:01 → M ED INP 09:31 → M PED 11:13
PROC: 0CTW0Z1 Resection of Upper Tooth, Multiple, Open Approach (ICD-10-PCS; principal; 2017-12-09 14:00)
PROC: 0C94XZZ Drainage of Buccal Mucosa, External Approach (ICD-10-PCS; 2017-12-09 14:00)
DX: L03.211 Cellulitis of face (principal); K12.2 Cellulitis and abscess of mouth; K04.7 Periapical abscess without sinus; Z88.5 Allergy status to narcotic agent; Z91.010 Allergy to peanuts; F17.210 Nicotine dependence, cigarettes, uncomplicated; B95.62 Methicillin resistant Staphylococcus aureus infection as the cause of diseases classified elsewhere; L03.213 Periorbital cellulitis

== ENCOUNTER 2018-03-10 13:51 | Emergency (ER) | payer SELFPAY ==
[2018-03-10] MEDS: IBUPROFEN 600 MG TAB PO (15:17)
== END 2018-03-10 16:16 | disposition home or self-care (01) ==
LOC: M ED 13:51
DX: M25.552 Pain in left hip (principal); J45.909 Unspecified asthma, uncomplicated
CPT/HCPCS: 73502

== ENCOUNTER 2019-01-26 11:32 | Emergency (ER) | payer OTHER, SELFPAY ==
[~2019-01-26] VITALS: Ht 162.6 cm; Wt 75.9 kg
[~2019-01-26 11:32] MED LIST changes: -/PANT40TA; +ALBU17IN2 INH; +AMOX500C PO; +AUGM875T28 PO; +BACITAB PO; +CLIN150C14 PO; +HYDR-3715 PO; +IBUP-1022 PO; +IBUP1TAB6 PO; +IBUP80TA PO; +MAXA10TA15 PO; +NAPR-837 PO; +NICO14DI3 TOP; +NORC1TAB7 PO; +PROT1TAB2
[2019-01-26] MEDS ORDERED: ACETAMINOPHEN TAB 650MG DOSE (2X325MG) PO ONE (13:15)
[2019-01-26 13:42] VITALS: BP 143/81
--- NOTE | 2019-01-26 13:52 | REP ---
LEFT FOOT COMPLETE: 01/26/2019. Clinical history: Blunt trauma, heavy mental roll fell on foot today. Left great toe pain. Findings: No prior study. Four views are provided. There is minor degenerative change of the first MTP joint. The metatarsals are intact as are their articulations. There is a nondisplaced fracture of the distal phalanx of the great toe. No foreign body identified. Proximal phalanx of the great toe as a suspected nondisplaced fracture on one-view seen at maximum magnification. I do not see other phalangeal fractures. Tarsal bones and hind foot unremarkable. Impression: 1. A nondisplaced fracture of the shaft of the distal phalanx of the great toe and a suspected distal head of the proximal phalanx fracture with articular extension but seen only on one-view. Electronically Signed by Hemanht Nielsen MD 01/26/2019 07:41 P
== END 2019-01-26 14:00 | disposition home or self-care (01) ==
LOC: M ED 11:32
DX: S90.112A Contusion of left great toe without damage to nail, initial encounter (principal); S90.32XA Contusion of left foot, initial encounter; S92.425A Nondisplaced fracture of distal phalanx of left great toe, initial encounter for closed fracture; S92.415A Nondisplaced fracture of proximal phalanx of left great toe, initial encounter for closed fracture; W22.8XXA Striking against or struck by other objects, initial encounter; Y92.89 Other specified places as the place of occurrence of the external cause; Y99.0 Civilian activity done for income or pay; Z88.5 Allergy status to narcotic agent; F17.210 Nicotine dependence, cigarettes, uncomplicated

== ENCOUNTER 2019-09-20 17:49 | Emergency (ER) | payer OTHER, SELFPAY ==
[~2019-09-20] VITALS: Ht 162.6 cm; Wt 84.0 kg
[2019-09-20] MEDS ORDERED: diphenhydrAMINE 50MG/ML VIAL (J1200) IV ONE (18:45)
[2019-09-20] MEDS ORDERED: ONDANSETRON 4MG/2ML VIAL IV ONE (18:45)
[2019-09-20] MEDS ORDERED: NS 1,000 ML IV ONE (18:45)
[2019-09-20] MEDS ORDERED: KETOROLAC 30 MG/ML 1ML VIAL IV ONE (18:45)
[2019-09-20 19:37] LABS: BASO # 0.1 10^3/uL (0.0-0.2); BASO % 0.9 % (0.0-1.0); EOS # 0.4 10^3/uL (0.0-0.5); EOS % 4.6 % (0.0-3.0); HEMATOCRIT 38.1 % (36.0-47.0); HEMOGLOBIN 12.9 g/dl (12.0-15.5); LYMPH # 2.6 10^3/uL (1.5-5.0); LYMPH % 34.1 % (24.0-44.0); MEAN CORPUSCULAR HGB CONC 33.9 g/dl (32.0-36.5); MEAN CORPUSCULAR VOLUME 85.6 fl (80.0-96.0); MONO # 0.6 10^3/uL (0.0-0.8); MONO % 8.1 % (0.0-5.0); NEUTROPHILS % 51.9 % (36.0-66.0); PLATELET COUNT, AUTOMATED 263 10^3/uL (150-450); RED BLOOD COUNT 4.45 10^6/uL (4.00-5.40); WHITE BLOOD COUNT 7.7 10^3/uL (4.0-10.0)
[2019-09-20 20:08] LABS: ALBUMIN 4.1 GM/DL (3.2-5.2); BILIRUBIN,DIRECT 0.1 MG/DL (0.0-0.2); BILIRUBIN,TOTAL 0.3 MG/DL (0.2-1.0); FREE T4 0.98 NG/DL (0.76-1.46); MAGNESIUM LEVEL 2.1 MG/DL (1.8-2.4); THYROID STIMULATING HORMONE 1.98 uIU/ML (0.358-3.740); TOTAL PROTEIN 7.5 GM/DL (6.4-8.2)
[2019-09-20 21:09] VITALS: BP 133/63
== END 2019-09-20 21:10 | disposition home or self-care (01) ==
LOC: M ED 17:49
DX: G43.909 Migraine, unspecified, not intractable, without status migrainosus (principal)
CPT/HCPCS: 80047; 80076; 83735; 84439; 84443; 84702; 85025; 96361; 96374; 96375; 99284; J1200; J1885; J2405

== ENCOUNTER 2019-12-19 14:50 | Emergency (ER) | payer SELFPAY ==
[~2019-12-19] VITALS: Ht 162.6 cm; Wt 84.7 kg
[2019-12-19] MEDS ORDERED: ADVIL (14:57)
[2019-12-19] MEDS ORDERED: CYCLOBENZAPRINE 10MG TABLET PO ONE (18:15)
[2019-12-19] MEDS ORDERED: KETOROLAC TROMETHAMINE 10 MG TAB PO ONE (18:15)
--- NOTE | 2019-12-19 18:53 | REPVR ---
PROCEDURE INFORMATION: Exam: XR Right Shoulder Exam date and time: 12/19/2019 6:38 PM Age: 44 years old Clinical indication: Pain; Shoulder; Right; Additional info: Pain/dec rom TECHNIQUE: Imaging protocol: XR Right shoulder. Views: 2 or more views. COMPARISON: No relevant prior studies available. FINDINGS: Bones/joints: Normal. Soft tissues: Normal. IMPRESSION: No acute findings. Electronically signed by: Renaldo Magallanes On 12/19/2019 18:53:50 PM
[2019-12-19 19:07] VITALS: BP 156/78
[2019-12-19] MEDS ORDERED: KETO10TAB PO (19:17)
[2019-12-19] MEDS ORDERED: CYCL5TAB PO (19:17)
== END 2019-12-19 19:31 | disposition home or self-care (01) ==
LOC: M ED 14:50
DX: M25.511 Pain in right shoulder (principal); J45.909 Unspecified asthma, uncomplicated; Z88.5 Allergy status to narcotic agent; F17.210 Nicotine dependence, cigarettes, uncomplicated

== ENCOUNTER 2020-03-29 14:32 | Emergency (ER) | payer SELFPAY ==
[~2020-03-29] VITALS: Ht 162.6 cm; Wt 87.2 kg
[~2020-03-29 14:32] MED LIST changes: +ADVIL; +CYCL5TAB PO; +KETO10TAB PO
[2020-03-29] MEDS ORDERED: PROAAER10 INH (14:46)
[2020-03-29] MEDS ORDERED: NAPROXEN 250 MG TAB PO ONE (16:15)
--- NOTE | 2020-03-29 16:40 | REP ---
INDICATION: shoulder pain COMPARISON: None. TECHNIQUE: Internal rotation, external rotation, and Y view. FINDINGS: No acute fracture or dislocation. The acromioclavicular and glenohumeral joints are intact. No periarticular calcifications or degenerative changes are appreciated. Sub acromial space is normal. Surrounding soft tissues are unremarkable. IMPRESSION: Normal age-appropriate right shoulder radiographs. <Electronically signed by Yousif Catalan > 03/29/20 [id number]
--- NOTE | 2020-03-29 17:46 | REPVR ---
PROCEDURE INFORMATION: Exam: US Duplex Right Upper Extremity Veins, Limited Exam date and time: 03/29/2020 5:23 PM Age: 44 years old Clinical indication: Pain; Arm, upper; Right; Additional info: Shoulder and arm pain TECHNIQUE: Imaging protocol: Real-time Duplex ultrasound of the Right Upper Extremity with 2-D mladonado scale, color Doppler flow and spectral waveform analysis with image documentation. Limited exam focused on the right upper extremity veins. COMPARISON: No relevant prior studies available. FINDINGS: Right deep veins: Unremarkable. Axillary and brachial veins are patent throughout without thrombus. Normal Doppler waveforms. Normal compressibility and/or augmentation response. Visualized internal jugular and subclavian veins are patent. Right superficial veins: Unremarkable. Visualized cephalic and basilic veins are patent without thrombus. Soft tissues: 2.1 x 0.6 x 1 cm cystic lesion at the level of the wrist, possibly secondary to a ganglion cyst. IMPRESSION: 1. No sonographic evidence of deep vein thrombosis. 2. 2.1 x 0.6 x 1 cm cystic lesion at the level of the wrist, possibly a ganglion cyst. Electronically signed by: Roni Arevalo On 03/29/2020 17:46:05 PM
[2020-03-29] MEDS ORDERED: NAPR-837 PO (17:54)
[2020-03-29 18:07] VITALS: BP 153/84
== END 2020-03-29 18:09 | disposition home or self-care (01) ==
LOC: M ED 14:32
DX: M67.431 Ganglion, right wrist (principal); M25.511 Pain in right shoulder; J45.909 Unspecified asthma, uncomplicated; Z88.5 Allergy status to narcotic agent; F17.210 Nicotine dependence, cigarettes, uncomplicated

== ENCOUNTER 2020-05-01 08:59 | Emergency (ER) | payer SELFPAY ==
[~2020-05-01] VITALS: Ht 162.6 cm; Wt 86.7 kg
[2020-05-01 08:59] VITALS: BP 153/80
[~2020-05-01 08:59] MED LIST changes: +PROAAER10 INH
[2020-05-01] MEDS ORDERED: AZIT-12 PO (09:21)
[2020-05-01] MEDS ORDERED: AUGM875T28 PO (09:41)
[2020-05-01] MEDS ORDERED: AUGMENTIN 875 MG TAB PO ONE (09:45)
[2020-05-01] MEDS ORDERED: BOOSTRIX/ADACEL VACCINE (DIPHTH/PERTUSS/ACELL/TETANUS) 0.5ML SYR IM ONE (09:45)
== END 2020-05-01 09:51 | disposition home or self-care (01) ==
LOC: M ED 08:59
DX: S00.81XA Abrasion of other part of head, initial encounter (principal); W55.03XA Scratched by cat, initial encounter; Y92.018 Other place in single-family (private) house as the place of occurrence of the external cause; J45.909 Unspecified asthma, uncomplicated; Z88.5 Allergy status to narcotic agent; F17.210 Nicotine dependence, cigarettes, uncomplicated

== ENCOUNTER 2023-12-05 13:43 | Emergency (ER) | payer SELFPAY ==
[~2023-12-05] VITALS: Ht 162.6 cm; Wt 90.2 kg
[~2023-12-05 13:43] MED LIST changes: +AZIT-12 PO; -CLIN150C14 PO; +CLIN150C17 PO; -MAXA10TA15 PO; +RIZA10TA66 PO
[2023-12-05] MEDS ORDERED: ISOVUE-370 76% 100ML VIAL As Ordered ONE (14:18)
[2023-12-05 14:28] LABS: BASO # 0.1 10^3/uL (0.0-0.2); BASO % 0.7 % (0.0-1.0); EOS # 0.5 10^3/uL (0.0-0.5); EOS % 5.7 % (0.0-3.0); HEMATOCRIT 42.6 % (36.0-47.0); HEMOGLOBIN 14.6 g/dl (12.0-15.5); LYMPH # 2.4 10^3/uL (1.5-5.0); LYMPH % 29.3 % (24.0-44.0); MEAN CORPUSCULAR HEMOGLOBIN 29.3 pg (27.0-33.0); MEAN CORPUSCULAR HGB CONC 34.3 g/dl (32.0-36.5); MEAN CORPUSCULAR VOLUME 85.4 fl (80.0-96.0); MONO # 0.7 10^3/uL (0.0-0.8); MONO % 8.6 % (2.0-8.0); NEUTROPHILS # 4.6 10^3/uL (1.5-8.5); NEUTROPHILS % 55.6 % (36.0-66.0); PLATELET COUNT, AUTOMATED 289 10^3/uL (150-450); RED BLOOD COUNT 4.99 10^6/uL (4.00-5.40); WHITE BLOOD COUNT 8.3 10^3/uL (4.0-10.0)
[2023-12-05 14:48] LABS: INR 1.04; PARTIAL THROMBOPLASTIN TIME 30.3 SECONDS (24.8-34.2); PROTHROMBIN TIME 13.3 SECONDS (12.5-14.5)
[2023-12-05 14:53] VITALS: BP 126/60; TEMP 97.3; O2SAT 98
[2023-12-05 14:58] LABS: BLOOD UREA NITROGEN 11 MG/DL (9-23); CALCIUM LEVEL 9.4 MG/DL (8.5-10.1); CARBON DIOXIDE LEVEL 26 MMOL/L (20-31); CHLORIDE LEVEL 106 MMOL/L (98-107); CK-MB VALUE MASS < 1.0 NG/ML (<3.6); CREATININE FOR GFR 0.67 MG/DL (0.55-1.30); GLOMERULAR FILTRATION RATE > 60.0 (>58); GLUCOSE, FASTING 109 MG/DL (60-100); SODIUM LEVEL 137 MMOL/L (136-145)
[2023-12-05 14:59] LABS: CPK CREATINE PHOSPHOKINASE 108 U/L (34-145); MB/CK RELATIVE INDEX 0.92 (< OR =4)
[2023-12-05 15:25] VITALS: BP 162/67; TEMP 97.3; O2SAT 96
[2023-12-05 15:49] VITALS: BP 164/77; O2SAT 98
[2023-12-05] MEDS: MORPHINE 4 MG/ML 1ML VIAL IV ONE (15:55)
[2023-12-05 17:01] VITALS: BP 150/67; TEMP 97
[2023-12-05 18:25] VITALS: BP 140/66; TEMP 98.3; O2SAT 97
[2023-12-05] MEDS: METOCLOPRAMIDE INJ 10MG/2ML VIAL IV ONE (19:08)
[2023-12-05] MEDS: KETOROLAC 30 MG/ML 1ML VIAL IV ONE (19:09)
[2023-12-05 19:58] VITALS: BP 141/77; TEMP 98; O2SAT 99
== END 2023-12-05 20:09 | disposition home or self-care (01) ==
LOC: M ED 13:43
DX: G43.909 Migraine, unspecified, not intractable, without status migrainosus (principal); S16.1XXA Strain of muscle, fascia and tendon at neck level, initial encounter; Y92.9 Unspecified place or not applicable; Y93.9 Activity, unspecified; Y99.9 Unspecified external cause status; F17.210 Nicotine dependence, cigarettes, uncomplicated; F10.10 Alcohol abuse, uncomplicated; Z88.5 Allergy status to narcotic agent; Z79.51 Long term (current) use of inhaled steroids; Z79.2 Long term (current) use of antibiotics
CPT/HCPCS: 70450; 70496; 70498; 70551; 71045; 71260; 80047; 80048; 82550; 82553; 84484; 85025; 85610; 85730; 93005; 93041; 94760; 96374; 96375; 99285; J1885; J2765; Q9967

== ENCOUNTER 2024-09-05 21:25 | Emergency (ER) | payer SELFPAY ==
[~2024-09-05] VITALS: Ht 162.6 cm; Wt 91.0 kg
[~2024-09-05 21:25] MED LIST changes: -CYCL5TAB PO; +CYCL5TAB4 PO
[2024-09-05 23:24] LABS: BASO # 0.1 10^3/uL (0.0-0.2); BASO % 0.7 % (0.0-1.0); EOS # 0.5 10^3/uL (0.0-0.5); EOS % 5.7 % (0.0-3.0); HEMATOCRIT 37.9 % (36.0-47.0); HEMOGLOBIN 12.6 g/dl (12.0-15.5); LYMPH # 2.9 10^3/uL (1.5-5.0); LYMPH % 34.7 % (24.0-44.0); MEAN CORPUSCULAR HEMOGLOBIN 27.9 pg (27.0-33.0); MEAN CORPUSCULAR HGB CONC 33.2 g/dl (32.0-36.5); MEAN CORPUSCULAR VOLUME 83.8 fl (80.0-96.0); MONO # 0.6 10^3/uL (0.0-0.8); MONO % 7.5 % (2.0-8.0); NEUTROPHILS # 4.3 10^3/uL (1.5-8.5); PLATELET COUNT, AUTOMATED 320 10^3/uL (150-450); RED BLOOD COUNT 4.52 10^6/uL (4.00-5.40); WHITE BLOOD COUNT 8.4 10^3/uL (4.0-10.0)
[2024-09-05] MEDS: ACETAMINOPHEN 500 MG TAB PO ONE (23:25)
[2024-09-05 23:33] LABS: KETONE, URINE AUTO RFX NEGATIVE (NEGATIVE); LEUKOCYTE ESTERASE UR AUTO RFX NEGATIVE (NEGATIVE); NITRITE, URINE AUTO RFX NEGATIVE (NEGATIVE); RBC, URINE AUTO RFX 0 /HPF (0-3); SQUAM EPITHELIAL CELL UR AURFX 0 /HPF (0-6); WBC, URINE AUTO RFX 0 /HPF (0-3)
[2024-09-05 23:56] LABS: ALBUMIN 3.5 G/DL (3.2-5.2); ALKALINE PHOSPHATASE 115 U/L (35-104); ALT/SGPT 27 U/L (7.0-40); AST/SGOT 19 U/L (<34); BILIRUBIN,TOTAL 0.2 MG/DL (0.3-1.2); BLOOD UREA NITROGEN 19 MG/DL (9-23); CALCIUM LEVEL 8.7 MG/DL (8.5-10.1); CARBON DIOXIDE LEVEL 27 MMOL/L (20-31); CHLORIDE LEVEL 109 MMOL/L (98-107); CREATININE FOR GFR 0.73 MG/DL (0.55-1.30); GLOMERULAR FILTRATION RATE > 90.0 (>58); GLUCOSE, FASTING 124 MG/DL (60-100); SODIUM LEVEL 142 MMOL/L (136-145)
[2024-09-06] MEDS: MORPHINE 2 MG/ML 1ML VIAL IV ONE (00:54)
[2024-09-06] MEDS ORDERED: ISOVUE-370 76% 100ML VIAL As Ordered ONE (01:17)
[2024-09-06] MEDS: KETOROLAC 30 MG/ML 1ML VIAL IV ONE (04:30)
[2024-09-06 05:01] VITALS: BP 127/65
[2024-09-06] MEDS ORDERED: CYCL-707 PO (05:29)
[2024-09-06] MEDS ORDERED: IBUP-1022 PO (05:29)
[2024-09-06] MEDS: diazePAM 5MG TABLET PO ONE (05:30)
[2024-09-06 05:45] VITALS: O2SAT 97
[2024-09-06 05:47] VITALS: TEMP 96.5
== END 2024-09-06 06:04 | disposition home or self-care (01) ==
LOC: M ED 21:25
DX: S39.012A Strain of muscle, fascia and tendon of lower back, initial encounter (principal); S23.3XXA Sprain of ligaments of thoracic spine, initial encounter; Y92.9 Unspecified place or not applicable; Y93.9 Activity, unspecified; Y99.9 Unspecified external cause status; J45.909 Unspecified asthma, uncomplicated; F17.210 Nicotine dependence, cigarettes, uncomplicated; Z88.5 Allergy status to narcotic agent; Z79.1 Long term (current) use of non-steroidal anti-inflammatories (NSAID); Z79.899 Other long term (current) drug therapy
CPT/HCPCS: 71275; 74177; 80053; 81001; 85025; 85379; 96374; 96375; 99285; J1885; Q9967